=== PATIENT | male | born 1955 | race Asian ===

== ENCOUNTER 2020-05-31 11:33 | Emergency (ER) | payer SELFPAY ==
[~2020-05-31] VITALS: Ht 183.5 cm; Wt 90.9 kg
[2020-05-31 13:52] VITALS: BP 140/89
== END 2020-05-31 14:15 | disposition home or self-care (01) ==
LOC: EMS 11:36
DX: M25.512 Pain in left shoulder (principal); V49.40XA Driver injured in collision with unspecified motor vehicles in traffic accident, initial encounter; Y93.89 Activity, other specified; Y92.89 Other specified places as the place of occurrence of the external cause; Y99.8 Other external cause status